=== PATIENT | female | born 1985 | race Hispanic/Latino ===

== ENCOUNTER 2018-05-23 09:32 | Emergency (ER) | payer BC ==
[~2018-05-23] VITALS: Ht 167.6 cm; Wt 100.0 kg
[~2018-05-23 09:32] MED LIST: BC PILL; CEPHALEXIN500 M1 PO; LORTAB 10-325 M1 TAB PO; MEDDOSEPAK PO; NAPROSYN500 MG OR; NO HOME MEDS PER PT; PRENATABS OR; ROBITUSSIN AC10 ML OR; TENORMIN25 MG OR; ULTRAM50 M1 OR; ULTRAM50 M1 PO; VENTOLIN HFA IN; [UNRECOGNIZED DRUG - OTHER]
[2018-05-23 11:05] LABS: HEMATOCRIT 41.2 % (37.0-47.0); HEMOGLOBIN 13.7 g/dl (12.0-16.0); IMMATURE GRANULOCYTES 0.3 % (0.0-5.0); MEAN CELL VOLUME 85.3 fL CALC (80.0-100.0); MEAN CORPUSCULAR HGB 28.4 pG CALC (26.0-32.0); MEAN CORPUSCULAR HGB CONC 33.3 g/L CALC (32.0-36.0); NEUT# 4.2 thou/uL (2.00-7.15); RED BLOOD COUNT 4.83 mill/uL (4.20-5.60); RED CELL DISTRI WIDTH 12.4 % (11.5-15.5)
[2018-05-23 11:09] LABS: PROTHROMBIN TIME 10.3 SECONDS (9.0-12.5)
[2018-05-23 11:12] LABS: BARBITURATES NEGATIVE (NEGATIVE); COCAINE NEGATIVE (NEGATIVE); METHADONE NEGATIVE (NEGATIVE); OXCYCODONE NEGATIVE (NEGATIVE); TETRAHYDROCANNABIONOL NEGATIVE (NEGATIVE); TRICYLIC ANTIDEPRESSANTS NEGATIVE (NEGATIVE)
[2018-05-23 11:15] LABS: ALBUMIN 4.5 g/dL (3.2-5.0); ALKALINE PHOSPHATASE 83 u/l (38-126); ANION GAP 17 (6-22 (CALC)); BILIRUBIN, TOTAL 0.4 mg/dL (0.0-1.4); BUN 11 mg/dL (7-17); BUN/CREATININE RATIO 19 (12-20 (CALC)); CARBON DIOXIDE 22 mmol/l (22-30); CHLORIDE 106 mmol/l (95-108); CREATININE 0.6 mg/dL (0.5-1.0); GFR > 60 ML/MIN (>=60 (CALC)); GFR FOR AFR.AMER. > 60 ML/MIN (>=60 (CALC)); POTASSIUM 3.8 mmol/l (3.5-5.1); SGOT/AST 28 u/l (14-36); SODIUM 140 mmol/l (137-146)
[2018-05-23 13:21] VITALS: BP 130/69
== END 2018-05-23 15:25 | disposition short-term general hospital (02) | DRG 66 ==
LOC: ED 09:32
PROVIDERS: Emergency Medicine
DX: I63.9 Cerebral infarction, unspecified (principal); R20.2 Paresthesia of skin; R29.701 NIHSS score 1; I10 Essential (primary) hypertension; T46.5X6A Underdosing of other antihypertensive drugs, initial encounter; Z91.128 Patient's intentional underdosing of medication regimen for other reason
CPT/HCPCS: Q9967

== ENCOUNTER 2018-10-03 20:49 | Inpatient (IN) | payer BC ==
[~2018-10-03] VITALS: Ht 167.6 cm; Wt 98.8 kg
--- NOTE | 2018-10-03 20:51 | NUR ---
PATIENT AMBULATORY TO ROOM 13 FOR BEDSIDE TRIAGE. PATIENT SENT TO BATHROOM FOR URINE SAMPLE.
[2018-10-03] MEDS ORDERED: LISINOP/HCTZ1 TA1 PO (21:02)
[2018-10-03] MEDS ORDERED: HYDROCO/APAP1 T10 PO (21:03)
--- NOTE | 2018-10-03 21:04 | NUR ---
AT BEDSIDE. URINE SENT TO LAB.
[2018-10-03 21:45] LABS: AMYLASE 36 u/l (30-110); LIPASE 87 u/l (23-300); MAGNESIUM 1.8 mg/dL (1.6-2.3)
[2018-10-03 21:48] LABS: HEMATOCRIT 36.8 % (37.0-47.0); HEMOGLOBIN 12.9 g/dl (12.0-16.0); IMMATURE GRANULOCYTES 0.7 % (0.0-5.0); MEAN CELL VOLUME 80.9 fL CALC (80.0-100.0); MEAN CORPUSCULAR HGB 28.4 pG CALC (26.0-32.0); MEAN CORPUSCULAR HGB CONC 35.1 g/L CALC (32.0-36.0); NEUT# 2.6 thou/uL (2.00-7.15); RED BLOOD COUNT 4.55 mill/uL (4.20-5.60); RED CELL DISTRI WIDTH 12.2 % (11.5-15.5)
[2018-10-03 21:56] LABS: BUN 12 mg/dL (7-17); BUN/CREATININE RATIO 14 (12-20 (CALC)); CARBON DIOXIDE 24 mmol/l (22-30); CHLORIDE 101 mmol/l (95-108); CREATININE 0.8 mg/dL (0.5-1.0); GFR > 60 ML/MIN (>=60 (CALC)); GFR FOR AFR.AMER. > 60 ML/MIN (>=60 (CALC)); SODIUM 135 mmol/l (137-146); TOTAL PROTEIN 7.8 g/dL (6.3-8.2)
[2018-10-03 21:59] LABS: URINE BILIRUBIN - DIPSTICK NEGATIVE (NEGATIVE); URINE BLOOD DIPSTICK LARGE (NEGATIVE); URINE GLUCOSE - DIPSTICK NEGATIVE (NEGATIVE); URINE KETONE NEGATIVE (NEGATIVE); URINE LEUK ESTERASE NEGATIVE (NEGATIVE); URINE NITRITE - DIPSTICK NEGATIVE (Negative); URINE PROTEIN - DIPSTICK 30 mg/dL (NEG-TRACE); URINE SPECIFIC GRAVITY 1.015
[2018-10-03 21:59] LABS: ALKALINE PHOSPHATASE 172 u/l (38-126); ANION GAP 13 (6-22 (CALC)); BILIRUBIN, TOTAL 0.7 mg/dL (0.0-1.4); SGOT/AST 103 u/l (14-36)
[2018-10-03 22:00] LABS: URINE COLOR DK. YELLOW
[2018-10-03 22:04] LABS: URINE SQUAMOUS EPITHELIAL CELL FEW EPI/hpf (0-FEW)
[2018-10-03 23:09] LABS: BARBITURATES NEGATIVE (NEGATIVE); COCAINE NEGATIVE (NEGATIVE); METHADONE NEGATIVE (NEGATIVE); TETRAHYDROCANNABIONOL NEGATIVE (NEGATIVE); TRICYLIC ANTIDEPRESSANTS NEGATIVE (NEGATIVE)
[2018-10-03 23:10] LABS: OXCYCODONE POSITIVE (NEGATIVE)
--- NOTE | 2018-10-03 23:17 | NUR ---
PT LOOKS AND FEELS MUCH BETTER. VSS. MEDS GIVEN. EKG DONE. NAD.
--- NOTE | 2018-10-03 23:39 | NUR ---
REPORT TO NAHEED, ICU
--- NOTE | 2018-10-03 23:52 | NUR ---
TO FLOOR ON PORTABLE MONITOR/STRETCHER/NURSE...AFTER ADDITIONAL DOSE OF KCL GIVEN. PT AMBULATORY TO BED
[2018-10-03 23:55] VITALS: BP 139/75
--- NOTE | 2018-10-03 23:55 | NUR ---
33 yr old nauruan female admitted to icu6 as medsurg tele overflow. denies h/a. transferred self to bed. bed weight obtained. supervisor reinforced steel placing shows sinus rhythm. #20 lac ns bolus cont. history obtained per pt & er record. oriented to room. fall precautions initiated. @ bedside.
--- NOTE | 2018-10-04 01:20 | NUR ---
[facility] notified of need to verify orders from 10-03-18 @ 6994.
--- NOTE | 2018-10-04 04:00 | NUR ---
admission nurse coordinator shows sinus rhythm hr 78.
[2018-10-04 06:00] VITALS: BP 139/73
--- NOTE | 2018-10-04 06:00 | NUR ---
awake. c/o chills. t 100.5. up to [facility]. rudy well.
[2018-10-04 07:15] VITALS: BP 139/84
--- NOTE | 2018-10-04 07:15 | NUR ---
PT RESTING IN BED AWAKE. PT IS ALERT AND ORIENTED X3. SHIFT ASSESSMENT COMPLETED AT THIS TIME. IV PATENT X1. PATIENT HAS CHILLS TEMP 103.1. MEDICATED WITH TYLENOL. REMOVED BLANKET. CALL LIGHT IN REACH. WILL CONTINUE TO MONITOR
--- NOTE | 2018-10-04 08:32 | NUR ---
DR RAYA AT BEDSIDE AT THIS [facility]
[2018-10-04 11:00] VITALS: BP 140/79
--- NOTE | 2018-10-04 11:49 | NUR ---
PT RESTING IN BED AWAKE. RESP ARE EVEN AND UNLABORED. NO DISTRESS NOTED. CALL LIGHT IN REACH. WILL CONTINUE TO MONITOR.
--- NOTE | 2018-10-04 14:45 | NUR ---
DR RAYA NOTIFIED OF PERSISTENT FEVER. NEW RODERS RECEIVED. DR MUSA NOTIFIED OF NEED FOR LUUBAR PUNCTURE.
--- NOTE | 2018-10-04 14:54 | NUR ---
CONSENT OPBTAINED FOR LUMBAR PUNCTURE.
--- NOTE | 2018-10-04 15:15 | NUR ---
DR MUSA AT BEDSIDE FOR LUMBAR PUNCTURE Raymond PEREZ RN AT BEDSIDE TO ASSIST.
--- NOTE | 2018-10-04 15:26 | NUR ---
PT LAYING FLAT IN BED. PT AWARE OF SIDE EFFECTS AND TO NOTIFY STAFF. 4 VIAL OF CLEAR SPINAL FLUID SENT TO LAB
--- NOTE | 2018-10-04 15:40 | NUR ---
TEMP 105.0 TYMPANIC. PT ICED. ONLY SHEET ON PATIENT. NO CHILLS AT THIS TIME. CHECKED OTHER EAR 104.8. PT REQUESTED NO RECTAL TEMP. PT SKIN IS HOT TO TOUCH. ST ON MONITIRY 110-120. BP 158/78. MOTRIN GIVEN PO.
--- NOTE | 2018-10-04 15:50 | NUR ---
LAB AT BEDSIDE AT THIS TIME TO DRAW LACTIC
[2018-10-04 16:00] VITALS: BP 138/77
--- NOTE | 2018-10-04 16:10 | NUR ---
TEMP RECHECK 105. PT AGREED TO RECTAL TEMP. RECTAL TEMP 104. PT CONTINUES TO BE PACKED IN ICE NO COVERS. ST ON MONITOR AT 106. WILL CONTINUE TO MONITOR.
--- NOTE | 2018-10-04 16:57 | NUR ---
S: NAHEED CASH is a 33 F who presents with POSSIBLE MENINGITIS. She has a history of HYPERTENSION. All medications in patient's chart were reviewed. O: VS: BP 140/79 MMHG, P 87 BPM, RR 20 BPM, T 103 F W 98.571 KG, HT 66 IN, Scr= 0.8 MGDL , CrCl= 145.7 ML/MIN A: Blood AND CSF cultureS ARE pendinG. P: Patient is on CEFTRIAXONE 2 G IV DAILY AT 1000. Vancomycin ordered for pharmacy to dose. Start Vancomycin 1250 MG IV Q8H @ 0230, 1030, AND 1830. Vancomycin trough is drawn before the 4th dose on 10/05/18 @ 1800. Vancomycin goal trough is between 15-20 mcg/ml. Pharmacy will follow and or advise on antibiotics use as needed.
--- NOTE | 2018-10-04 17:20 | NUR ---
PT TO RADIOLOGY VIA WHEELCHAIR.
--- NOTE | 2018-10-04 17:45 | NUR ---
PT RETURNED FROM RADIOLOGY VIA WHEELCHAIR. TEMP 99.7. PT SITTING UP IN CHAIR EATING DINNER AND VISITING WITH FAMILY.
--- NOTE | 2018-10-04 19:00 | NUR ---
Received pt sitting in recliner chair at bedside. Pt alert. States she feels much better, pts only complaint at this time is sl pressure over bang/frontal area. Pt denies pain, headache, chills, nausea, shortness of breath. Assessment complete. See shift review for complete assessment. Skin warm and dry, dressing to spinal tap aread clean and dry. Discussed plan of care, to take pt to shower once vanco complete. Assisted back in to bed. Denies any needs or questions at this time.
[2018-10-04 19:44] VITALS: BP 131/74
--- NOTE | 2018-10-04 20:30 | NUR ---
Pt taken to [place] via wheelchair for shower. Tolerated well.
[2018-10-05] VITALS (7 sets, daily range): BP systolic 134–158; BP diastolic 70–92
--- NOTE | 2018-10-05 | NUR ---
Pt sleeping. Awaken for scheduled V/S. Pt afebrile at this time. Pt denies any needs.
--- NOTE | 2018-10-05 02:01 | NUR ---
Pt up to bathroom to void. Tolerated well. Temp 99.3 tylenol given. Pt denies any other needs.
--- NOTE | 2018-10-05 02:10 | NUR ---
REPORT RECEIVED FROM NOAH GONCALVES. ASSUMED CARE OF PT.
--- NOTE | 2018-10-05 03:00 | NUR ---
F/U TEMP 100.7; PT REMOVED BLANKET. NO NEEDS OR CONCERNS AT THIS TIME. FAMILY MEMBER AT BEDSIDE.
--- NOTE | 2018-10-05 04:14 | NUR ---
PT AMBULATED TO BATHROOM WITH STEADY GAIT. VSS. C/O MODERATE HEADACHE. RESPIRATIONS EVEN AND UNLABORED ON ROOM AIR. IV FLUIDS INFUSING WITHOUT DIFFICULTY; IV SITE APPEARS HEATLHY. SAFETY MEASURES IN PLACE. CALL LIGHT WITHIN REACH.
--- NOTE | 2018-10-05 05:29 | NUR ---
MOTRIN ADMINSITERED FOR TEMP OF 101.1; PERSISTENT HEADACHE.
[2018-10-05 05:41] LABS: HEMATOCRIT 37.9 % (37.0-47.0); HEMOGLOBIN 12.9 g/dl (12.0-16.0); IMMATURE GRANULOCYTES 0.7 % (0.0-5.0); MEAN CELL VOLUME 83.1 fL CALC (80.0-100.0); MEAN CORPUSCULAR HGB 28.3 pG CALC (26.0-32.0); NEUT# 7.1 thou/uL (2.00-7.15); RED BLOOD COUNT 4.56 mill/uL (4.20-5.60); RED CELL DISTRI WIDTH 12.4 % (11.5-15.5)
[2018-10-05 06:00] LABS: ALBUMIN 3.7 g/dL (3.2-5.0); ALKALINE PHOSPHATASE 175 u/l (38-126); ANION GAP 13 (6-22 (CALC)); BILIRUBIN, TOTAL 0.7 mg/dL (0.0-1.4); BUN 4 mg/dL (7-17); BUN/CREATININE RATIO 8 (12-20 (CALC)); CARBON DIOXIDE 26 mmol/l (22-30); CHLORIDE 106 mmol/l (95-108); CREATININE 0.5 mg/dL (0.5-1.0); GFR > 60 ML/MIN (>=60 (CALC)); GFR FOR AFR.AMER. > 60 ML/MIN (>=60 (CALC)); SGOT/AST 100 u/l (14-36); SODIUM 141 mmol/l (137-146); TOTAL PROTEIN 7.3 g/dL (6.3-8.2)
[2018-10-05 06:06] LABS: POTASSIUM 3.7 mmol/l (3.5-5.1)
--- NOTE | 2018-10-05 07:19 | NUR ---
PT RESTING IN BED AWAKE. PT IS ALERT AND ORIENTED X3. SHIFT ASSESSMENT COMPLETED AT THIS TIME. IV PATENT X1. TEMP RECEHCK 100.5. PT REQUESTED LORTAB FOR HEADACHE. MEDICATED PER APR. CALL LIGHT IN REACH. SPOUSE AT BEDSIDE. WILL CONTINUE TO MONITOR.
--- NOTE | 2018-10-05 08:51 | NUR ---
DR RAYA AT BEDSIDE TO DISCUSS PLAN OF CARE.
--- NOTE | 2018-10-05 12:00 | NUR ---
PT RESTING IN BED WIHT EYES CLOSED. RESP ARE EVEN AND UNLABORED. NO DISTRESS NOTED. CALL LIGHT IN REACH.WILL CONTINUE TO MONITOR.
--- NOTE | 2018-10-05 15:26 | NUR ---
FAMILY MEMBERS WITH SMALL CHILD INTO UNIT. HAD PATIENT EXPLAIN TO FAMILY DUE TO ONLY PANAMANIAN SPEAKING THAT SHE HAS HAD HIGH FEVER AND WE DO NOT KNOW THE SOURCE AT THIS TIME. CAUTIONED ON CHILD ENTERING ROOM FOR SUSCEPTIBILITY. FAMILY MEMBERS CHOSE TO HAVE EVERYONE COME IN. PT SITTING UP IN CHAIR AT THIS TIME.
--- NOTE | 2018-10-05 16:00 | NUR ---
PT RESTING IN BED TALKING WITH FAMILY. CALL LIGHT IN REACH. WILL CONTINUE TO MONITOR.
--- NOTE | 2018-10-05 18:03 | NUR ---
LAB AT BEDSIDE AT THIS TIME
[2018-10-05 18:34] LABS: ANION GAP 14 (6-22 (CALC)); BUN 4 mg/dL (7-17); BUN/CREATININE RATIO 8 (12-20 (CALC)); CARBON DIOXIDE 28 mmol/l (22-30); CHLORIDE 103 mmol/l (95-108); CREATININE 0.5 mg/dL (0.5-1.0); GFR > 60 ML/MIN (>=60 (CALC)); GFR FOR AFR.AMER. > 60 ML/MIN (>=60 (CALC)); POTASSIUM 3.4 mmol/l (3.5-5.1); SODIUM 141 mmol/l (137-146)
--- NOTE | 2018-10-05 18:55 | NUR ---
BEDSIDE REPORT RECEIVED FROM NOAH FREGOSO. PT RESTING IN BED WITH MULTIPLE FAMILY MEMBERS AT BEDSIDE.
--- NOTE | 2018-10-05 19:56 | NUR ---
PT RESTING IN BED ON RIGHT SIDE; ALERT AND ORIENTED. C/O WORSENING HEADACHE NOW 710; RESPIRATIONS EVEN AND UNLABORED ON ROOM AIR. ASSESSMENT COMPLETED AT THIS TIME; NEGATIVE BESIDES HEADAHCE. PLAN OF CARE REVIEWED. PT ENCOURAGED TO VERBALIZE CONCERNS. STATES UNDERSTANDING. SAFETY MEASURES IN PLACE. CALL LIGHT WITHIN REACH.
--- NOTE | 2018-10-05 21:37 | NUR ---
TEMPERATURE DECREASED TO 99.9. PT AMBULATED INTO BATHROOM TO VOID. PT INFORMED OF TRANSFER TO [facility] UNIT ROOM 283.
--- NOTE | 2018-10-05 22:50 | NUR ---
PT TRANSPORTED TO ROOM 283 VIA WHEELCHAIR. MOTRIN GIVEN FOR TEMP OF 101.0. CONTINUES WITH PERSISTANT HEADACHE. REMAINS AT BEDSIDE.
--- NOTE | 2018-10-05 23:20 | NUR ---
PATIENT RECIEVED FROM ICU VIA WHEELCHAIR WITH ACCOMPANING HER. PATIENT MIN ASSIST TO BED. ORIENTED TO ROOM AND SURROUNDINGS. INSTRUCTED ON USE OF NURSE CALL LIGHT, TV REMOTE, AND PHONE. SAETY PRECAUTIONS REINFORCED. PATIENT CONT TO HAVE SEVERE HEADACHE-9/10 ON PAIN SCALE. PATIENT MEDICATED WITH LORTAB 7.5MG/325MG PO. PATIENT SENSATIVE TO LIGHT AND LIGHTS ARE DIMMED. IV SITE TO LAC WITH IVF NS PATENT AND INFUSING AT 100CC/HR. SITE APPEARS HEALTHY. TELE MONITOR IN PLACE. SAFETY PRECAUTIONS REINFORCED. CALL LIGHT IN REACH. WILL CONT TO MONITOR.
[2018-10-06 00:30] VITALS: BP 142/78
--- NOTE | 2018-10-06 02:06 | NUR ---
PATIENT RESTING IN BED-EASY TO AROUSE-STATES THAT HE HEADACHE HAS IMPROVED. NO NEW COMPLAINTS AT THIS TIME. VANCO HUNG ORDERED VIA LEFT AC IV SITE. SITE REMAINS HEALTHY. TELE MONITOR IN PLACE. SAFETY PRECAUTIONS REINFORCED. CALL LIGHT IN REACH. WILL CONT TO MONITOR.
--- NOTE | 2018-10-06 04:53 | NUR ---
PATIENT RESTING IN ED. AFEBRILE AT THIS TIME. TELE MONITOR IN PLACE. IVF PATENT AND INFUSING VIA LEFT AC AT 100CC/HR. SITE REMAINS HEALTHY. CALL LIGHT IN REACH. WILL CONT TO MONITOR.
[2018-10-06 04:54] VITALS: BP 146/82
[2018-10-06 05:40] LABS: HEMATOCRIT 34.1 % (37.0-47.0); HEMOGLOBIN 11.5 g/dl (12.0-16.0); MEAN CELL VOLUME 82.8 fL CALC (80.0-100.0); MEAN CORPUSCULAR HGB 27.9 pG CALC (26.0-32.0); MEAN CORPUSCULAR HGB CONC 33.7 g/L CALC (32.0-36.0); RED BLOOD COUNT 4.12 mill/uL (4.20-5.60); RED CELL DISTRI WIDTH 12.5 % (11.5-15.5)
[2018-10-06 06:01] LABS: ALBUMIN 3.2 g/dL (3.2-5.0); ALKALINE PHOSPHATASE 172 u/l (38-126); ANION GAP 12 (6-22 (CALC)); BILIRUBIN, TOTAL 0.6 mg/dL (0.0-1.4); BUN 4 mg/dL (7-17); BUN/CREATININE RATIO 9 (12-20 (CALC)); CARBON DIOXIDE 27 mmol/l (22-30); CHLORIDE 103 mmol/l (95-108); CREATININE 0.4 mg/dL (0.5-1.0); GFR > 60 ML/MIN (>=60 (CALC)); GFR FOR AFR.AMER. > 60 ML/MIN (>=60 (CALC)); POTASSIUM 3.3 mmol/l (3.5-5.1); SGOT/AST 91 u/l (14-36); SODIUM 139 mmol/l (137-146); TOTAL PROTEIN 6.7 g/dL (6.3-8.2)
--- NOTE | 2018-10-06 07:45 | NUR ---
REPORT RECEIVED FROM NOAH LITTLE. PT SUPINE IN BED. DENIES PAIN AT THIS TIME. REPORTING OF CONCERNS AND PAIN MEDICATIONS AND SCHEDULES REVIEWED. PLAN OF CARE REVIEWED. AT BEDSIDE, STATES "I THINK SHE NEEDS TO BE TRANSFERED OUT. THIS IS SCARING ME." DR. RAYA NOTIFIED OF PT. AND PT'S HUSBNADS CONCERNS AND TRANSFER DESIRE. PT ALERT & ORIENTED X 4. NO SOB. LUNGS CLEAR. SKIN INTACT. REPORTS INCONTINENCE AT TIMES. #20 LAC, INFUSING NS @ 100 ML/HR W/O DIFFICULTY. NO REDNESS/SWELLING. CALL LIGHT REVIEWED AND IN REACH. PT STATES UNDERSTANDING.
--- NOTE | 2018-10-06 08:20 | NUR ---
DR. RAYA IN TO SEE PT. PLAN OF CARE UPDATED. NEW ORDERS FOR MRI BRAIN, US ABD, LABS, AND NEW MEDS. NPO UNTIL US AFTER LUNCHTIME EXPLAINED. PT STATES UNDERSTANDING.
[2018-10-06 08:33] VITALS: BP 156/96
--- NOTE | 2018-10-06 08:45 | NUR ---
PT. VOMITING IN TRASH CAN. UNABLE TO VISUALIZE CHARACTERISTICS OF EMESIS. DR. RAYA NOTIFIED. ORDER FOR ZOFRAN OBTAINED AND ADMINISTERED. PO MEDS DELAYED AT THIS TIME.
--- NOTE | 2018-10-06 09:30 | NUR ---
PT REPORTS RELIEF OF NAUSEA, ABLE TO TAKE PO MEDS. TEMP 101.0, MOTRIN PO ADMINISTERED. PT REFUSING K-DUR PILLS R/T SIZE AND FEAR OF EMESIS RETURNING. DR. RAYA NOTIFIED OF REFUSAL. NO REPORTS OF PAIN AT THIS TIME.
--- NOTE | 2018-10-06 10:40 | NUR ---
PT SITTING IN CHAIR AT BEDSIDE. REPORTS SEVERE HEADACHE,9 ON SCALE OF 0-10. LORTAB PO ADMINISTERED. FOLLOW-UP TEMP 100.3 AT THIS TIME. DECADROL ADMINISTERED IV PER ORDER. AT BEDSIDE. DENIES NAUSEA AT THIS TIME.
[2018-10-06 11:00] VITALS: BP 151/93
--- NOTE | 2018-10-06 13:54 | NUR ---
INITIATE TRANSFER TO [facility] PER DR. RAYA. SPOKE W/ JESSI AT [facility]. INFORMATION GIVEN. FACE SHEET FAXED TO [phone].
[2018-10-06 14:40] VITALS: BP 141/94
--- NOTE | 2018-10-06 14:54 | NUR ---
S: NAHEED CASH is a 33 F who presents with meningitis. She has a history of HTN. All medications in patient's chart were reviewed. O: VS: BP 151/93mmHg, P 93bpm, RR 20bpm, T 99.5 F W <98.8kg>, HT 66in, Scr= 0.4, CrCl= 159.6ml/min A: Blood culture shows no growth. CSF culture shows no growth P: Patient is on ceftriaxone 2g IV BID, levofloxacin 750mg IV q 24 h, Vanco 1.25g IV q 8 h. Vancomycin ordered for pharmacy to dose. Change Vancomycin 1g IV q 6 h. Vancomycin trough is drawn before the 5th dose on 10/07/18 at 0730. Vancomycin goal trough is between 15-20 mcg/ml. Pharmacy will follow and or advise on antibiotics use as needed.
--- NOTE | 2018-10-06 16:20 | NUR ---
SPOKE WITH JESSI AT [facility]. BED [id number] ASSIGNMENT GIVEN. NUMBER FOR REPORT [phone]. ACCEPTING PHYSICIAN DR. JENELLE ASHLEY. CALL PLACED TO [facility], DANN Mccallum/ [place]. ESTIMATED PICK-UP TIME OF 1929.
--- NOTE | 2018-10-06 19:00 | NUR ---
RECIEVED REPORT FROM DAY NURSE. PT RESTRING IN BED WITH EYES CLOSED. NO NEEDS AT THIS TIME. AWAITING TRANSPORT. WILL CONTINUE TO MONITOR.
--- NOTE | 2018-10-06 19:19 | NUR ---
REPORT GIVEN TO NOAH ZHOU AT [facility].
[2018-10-06 19:23] VITALS: BP 147/87
--- NOTE | 2018-10-06 22:07 | NUR ---
[facility] HERE TO CORPORATE SERVICES MANAGER PT, PT LEAVES AT 2216 VIA STRETCHER IN STABLE CONDITION
== END 2018-10-06 22:16 | disposition short-term general hospital (02) | DRG 868 ==
LOC: ED 20:49 → ED-I 22:57 → ED 23:11 → ICU 23:12 → MS2 10-05 08:49
PROVIDERS: ADMIT Internal Medicine; ATTEND Internal Medicine
PROC: 009U3ZX Drainage of Spinal Canal, Percutaneous Approach, Diagnostic (ICD-10-PCS; principal; 2018-10-04)
DX: B99.9 Unspecified infectious disease (principal); I67.7 Cerebral arteritis, not elsewhere classified; I10 Essential (primary) hypertension; R74.8 Abnormal levels of other serum enzymes
CPT/HCPCS: A9579; J1650; J3370

== ENCOUNTER 2019-06-06 | Emergency (ER) | payer BC ==
[~2019-06-06] MED LIST changes: +HYDROCO/APAP1 T10 PO; +LISINOP/HCTZ1 TA1 PO
[2019-06-06 06:31] LABS: HEMATOCRIT 36.9 % (37.0-47.0); HEMOGLOBIN 12.2 g/dl (12.0-16.0); IMMATURE GRANULOCYTES 0.4 % (0.0-5.0); MEAN CELL VOLUME 83.5 fL CALC (80.0-100.0); MEAN CORPUSCULAR HGB 27.6 pG CALC (26.0-32.0); MEAN CORPUSCULAR HGB CONC 33.1 g/dL CAL (32.0-36.0); NEUT# 4.31 thou/uL (2.00-7.15); RED BLOOD COUNT 4.42 mill/uL (4.20-5.60); RED CELL DISTRI WIDTH 12.8 % (11.5-15.5)
[2019-06-06 06:34] LABS: URINE BILIRUBIN - DIPSTICK NEGATIVE (NEGATIVE); URINE BLOOD DIPSTICK LARGE (NEGATIVE); URINE COLOR YELLOW; URINE GLUCOSE - DIPSTICK NEGATIVE (NEGATIVE); URINE KETONE NEGATIVE (NEGATIVE); URINE LEUK ESTERASE NEGATIVE (NEGATIVE); URINE NITRITE - DIPSTICK NEGATIVE (Negative); URINE PH 6.5 (4.5-8.0); URINE PROTEIN - DIPSTICK NEGATIVE (NEG-TRACE); URINE UROBILINOGEN - DIPSTICK 0.2 E.U./dL (0.2)
[2019-06-06 06:37] LABS: URINE RBC 25-50 RBC/hpf (0-5)
[2019-06-06 06:44] LABS: ANION GAP 11 (6-22 (CALC)); BILIRUBIN, TOTAL 0.4 mg/dL (0.0-1.4); BUN 13 mg/dL (7-17); BUN/CREATININE RATIO 24 (12-20 (CALC)); CARBON DIOXIDE 25 mmol/l (22-30); CHLORIDE 105 mmol/l (95-108); CREATININE 0.6 mg/dL (0.5-1.0); GFR > 60 ML/MIN (>=60 (CALC)); GFR FOR AFR.AMER. > 60 ML/MIN (>=60 (CALC)); POTASSIUM 3.7 mmol/l (3.5-5.1); SODIUM 138 mmol/l (137-146); TOTAL PROTEIN 7.7 g/dL (6.3-8.2)
[2019-06-06 06:48] LABS: ALBUMIN 4.3 g/dL (3.2-5.0); ALKALINE PHOSPHATASE 68 u/l (38-126); SGOT/AST 19 u/l (14-36)
[2019-06-06 07:00] LABS: BETA-HCG, QUANT(RESULT NUMBER) 16 mIU/mL
== END 2019-06-06 07:34 | disposition home or self-care (01) | DRG 832 ==
PROVIDERS: Emergency Medicine
DX: O20.0 Threatened abortion (principal); O10.911 Unspecified pre-existing hypertension complicating pregnancy, first trimester; Z3A.01 Less than 8 weeks gestation of pregnancy

== ENCOUNTER 2019-12-05 08:12 | Emergency (ER) | payer BC ==
[~2019-12-05] VITALS: Ht 167.6 cm; Wt 86.0 kg
[2019-12-05 09:15] LABS: HEMOGLOBIN 11.5 g/dl (12.0-16.0); IMMATURE GRANULOCYTES 0.3 % (0.0-5.0); MEAN CELL VOLUME 84.7 fL CALC (80.0-100.0); MEAN CORPUSCULAR HGB 27.1 pG CALC (26.0-32.0); MEAN CORPUSCULAR HGB CONC 31.9 g/dL CAL (32.0-36.0); NEUT# 5.05 thou/uL (2.00-7.15); RED BLOOD COUNT 4.25 mill/uL (4.20-5.60); RED CELL DISTRI WIDTH 12.9 % (11.5-15.5)
[2019-12-05 09:32] LABS: ALBUMIN 3.9 g/dL (3.2-5.0); ALKALINE PHOSPHATASE 68 u/l (38-126); ANION GAP 11 (6-22 (CALC)); BILIRUBIN, TOTAL 0.3 mg/dL (0.0-1.4); BUN 13 mg/dL (7-17); BUN/CREATININE RATIO 22 (12-20 (CALC)); CARBON DIOXIDE 25 mmol/l (22-30); CHLORIDE 106 mmol/l (95-108); CREATININE 0.6 mg/dL (0.5-1.0); GFR > 60 ML/MIN (>=60 (CALC)); GFR FOR AFR.AMER. > 60 ML/MIN (>=60 (CALC)); POTASSIUM 3.8 mmol/l (3.5-5.1); SGOT/AST 24 u/l (14-36); SODIUM 139 mmol/l (137-146); TOTAL PROTEIN 7.5 g/dL (6.3-8.2)
[2019-12-05] MEDS ORDERED: FIORICET PO (11:15)
[2019-12-05 11:41] VITALS: BP 143/90
== END 2019-12-05 11:41 | disposition home or self-care (01) | DRG 103 ==
LOC: ED 08:12
DX: G43.909 Migraine, unspecified, not intractable, without status migrainosus (principal); I10 Essential (primary) hypertension

== ENCOUNTER 2020-08-09 12:20 | Emergency (ER) | payer BC ==
[~2020-08-09] VITALS: Ht 167.6 cm; Wt 100.0 kg
[~2020-08-09 12:20] MED LIST changes: +FIORICET PO
[2020-08-09 13:12] LABS: HEMATOCRIT 37.1 % (37.0-47.0); HEMOGLOBIN 11.9 g/dl (12.0-16.0); IMMATURE GRANULOCYTES 0.4 % (0.0-5.0); MEAN CELL VOLUME 82.1 fL CALC (80.0-100.0); MEAN CORPUSCULAR HGB 26.3 pG CALC (26.0-32.0); MEAN CORPUSCULAR HGB CONC 32.1 g/dL CAL (32.0-36.0); NEUT# 3.94 thou/uL (2.00-7.15); RED BLOOD COUNT 4.52 mill/uL (4.20-5.60); RED CELL DISTRI WIDTH 12.5 % (11.5-15.5)
[2020-08-09 13:21] LABS: ALBUMIN 4.1 g/dL (3.2-5.0); ALKALINE PHOSPHATASE 77 u/l (38-126); ANION GAP 14 (6-22 (CALC)); BILIRUBIN, TOTAL 0.2 mg/dL (0.0-1.4); BUN 9 mg/dL (7-17); BUN/CREATININE RATIO 15 (12-20 (CALC)); CARBON DIOXIDE 24 mmol/l (22-30); CHLORIDE 104 mmol/l (95-108); CREATININE 0.6 mg/dL (0.5-1.0); GFR > 60 ML/MIN (>=60 (CALC)); GFR FOR AFR.AMER. > 60 ML/MIN (>=60 (CALC)); POTASSIUM 3.3 mmol/l (3.5-5.1); SGOT/AST 24 u/l (14-36); SODIUM 138 mmol/l (137-146)
[2020-08-09 13:31] LABS: MYOGLOBIN 18 ng/mL (0 - 62)
[2020-08-09 13:37] LABS: URINE BILIRUBIN - DIPSTICK NEGATIVE (NEGATIVE); URINE BLOOD DIPSTICK NEGATIVE (NEGATIVE); URINE COLOR YELLOW; URINE GLUCOSE - DIPSTICK NEGATIVE (NEGATIVE); URINE KETONE NEGATIVE (NEGATIVE); URINE LEUK ESTERASE NEGATIVE (NEGATIVE); URINE PROTEIN - DIPSTICK NEGATIVE (NEG-TRACE); URINE UROBILINOGEN - DIPSTICK 0.2 E.U./dL (0.2)
[2020-08-09 13:43] LABS: URINE NITRITE - DIPSTICK NEGATIVE (Negative)
[2020-08-09 16:29] VITALS: BP 147/74
== END 2020-08-09 16:44 | disposition home or self-care (01) | DRG 923 ==
LOC: ED 12:20
DX: T67.5XXA Heat exhaustion, unspecified, initial encounter (principal); I10 Essential (primary) hypertension; X30.XXXA Exposure to excessive natural heat, initial encounter; Y93.89 Activity, other specified; Y92.89 Other specified places as the place of occurrence of the external cause; Y99.0 Civilian activity done for income or pay

== ENCOUNTER 2021-03-09 07:16 | Emergency (ER) | payer OTHER, BC ==
[~2021-03-09] VITALS: Ht 167.6 cm; Wt 100.0 kg
[2021-03-09 07:47] LABS: HEMATOCRIT 40.2 % (37.0-47.0); HEMOGLOBIN 12.6 g/dl (12.0-16.0); IMMATURE GRANULOCYTES 0.3 % (0.0-5.0); MEAN CELL VOLUME 83.2 fL CALC (80.0-100.0); MEAN CORPUSCULAR HGB 26.1 pG CALC (26.0-32.0); MEAN CORPUSCULAR HGB CONC 31.3 g/dL CAL (32.0-36.0); NEUT# 3.06 thou/uL (2.00-7.15); RED BLOOD COUNT 4.83 mill/uL (4.20-5.60); RED CELL DISTRI WIDTH 13.5 % (11.5-15.5)
[2021-03-09 07:57] LABS: ALBUMIN 4.2 g/dL (3.2-5.0); ALKALINE PHOSPHATASE 86 u/l (38-126); ANION GAP 14 (6-22 (CALC)); BUN 10 mg/dL (7-17); BUN/CREATININE RATIO 15 (12-20 (CALC)); CARBON DIOXIDE 24 mmol/l (22-30); CHLORIDE 107 mmol/l (95-108); CREATININE 0.7 mg/dL (0.5-1.0); GFR > 60 ML/MIN (>=60 (CALC)); GFR FOR AFR.AMER. > 60 ML/MIN (>=60 (CALC)); POTASSIUM 3.7 mmol/l (3.5-5.1); SGOT/AST 33 u/l (14-36); SODIUM 141 mmol/l (137-146); TOTAL PROTEIN 8.2 g/dL (6.3-8.2)
[2021-03-09 08:01] LABS: BILIRUBIN, TOTAL 0.4 mg/dL (0.0-1.4)
[2021-03-09 09:29] LABS: URINE BILIRUBIN - DIPSTICK NEGATIVE (NEGATIVE); URINE BLOOD DIPSTICK LARGE (NEGATIVE); URINE GLUCOSE - DIPSTICK NEGATIVE (NEGATIVE); URINE KETONE NEGATIVE (NEGATIVE); URINE PH 6.5 (4.5-8.0); URINE PROTEIN - DIPSTICK TRACE mg/dL (NEG-TRACE); URINE SPECIFIC GRAVITY 1.025; URINE UROBILINOGEN - DIPSTICK 0.2 E.U./dL (0.2)
[2021-03-09 09:31] LABS: URINE COLOR AMBER; URINE LEUK ESTERASE SMALL (NEGATIVE); URINE NITRITE - DIPSTICK NEGATIVE (Negative)
[2021-03-09 09:37] LABS: URINE RBC >100 RBC/hpf (0-5); URINE SQUAMOUS EPITHELIAL CELL FEW EPI/hpf (0-FEW)
[2021-03-09 11:45] VITALS: BP 154/104
== END 2021-03-09 11:47 | disposition home or self-care (01) | DRG 313 ==
LOC: ED 07:16
PROVIDERS: Family Medicine
DX: R07.89 Other chest pain (principal); M25.532 Pain in left wrist; M25.531 Pain in right wrist; M25.561 Pain in right knee; I10 Essential (primary) hypertension; V54.5XXA Driver of pick-up truck or van injured in collision with heavy transport vehicle or bus in traffic accident, initial encounter; R82.71 Bacteriuria
CPT/HCPCS: Q9967